=== PATIENT | male | born 2000 | race Caucasian/White ===

== ENCOUNTER 2022-10-16 07:50 | Emergency (ER) | payer MEDICAID ==
[~2022-10-16] VITALS: Ht 185.4 cm; Wt 97.7 kg
[2022-10-16 08:38] VITALS: BP 153/66
[2022-10-16] MEDS ORDERED: FLUT16SP2 BOTHNARES (09:00)
[2022-10-16] MEDS ORDERED: CETI10TA15 PO (09:00)
[2022-10-16] MEDS ORDERED: AZIT-31 PO (09:00)
== END 2022-10-16 09:47 | disposition home or self-care (01) ==
LOC: ER 07:50
DX: J32.9 Chronic sinusitis, unspecified (principal); Z20.822 Contact with and (suspected) exposure to COVID-19; J30.2 Other seasonal allergic rhinitis; R06.7 Sneezing; F17.200 Nicotine dependence, unspecified, uncomplicated
CPT/HCPCS: 87811; 99283

== ENCOUNTER 2023-01-16 14:48 | Emergency (ER) | payer MEDICAID ==
[~2023-01-16] VITALS: Ht 185.4 cm; Wt 95.5 kg
[~2023-01-16 14:48] MED LIST: CETI10TA15 PO; FLUT16SP2 BOTHNARES
[2023-01-16 14:59] VITALS: BP 142/59
[2023-01-16] MEDS ORDERED: ketorolac tromethamine 15mg/ml inj. IM ONE (17:15)
== END 2023-01-16 17:27 | disposition home or self-care (01) ==
LOC: ER 14:49
DX: S46.912A Strain of unspecified muscle, fascia and tendon at shoulder and upper arm level, left arm, initial encounter (principal); M25.512 Pain in left shoulder; X58.XXXA Exposure to other specified factors, initial encounter; Y93.89 Activity, other specified; Y92.89 Other specified places as the place of occurrence of the external cause; Y99.8 Other external cause status
CPT/HCPCS: 73030; 96372; 99283; J1885